=== PATIENT | female | born 2000 | race African-American/Black ===

== ENCOUNTER 2018-11-13 16:44 | Emergency (ER) | payer OTHER ==
[2018-11-13 17:00] VITALS: BP 102/66; PULSE 96; TEMP 99.6; BMI 28.8
[2018-11-13] MEDS ORDERED: ONDANSETRON *ODT* 4 MG TABLET SL ONE (17:04)
--- NOTE | 2018-11-13 17:04 | PDOC ---
Rapid Medical Evaluation Chief Complaint: Vomiting/Diarrhea Time Seen by Provider: 11/13/18 16:57 Medical Evaluation: Allergies Allergy/AdvReac Type Severity Reaction Status Date / Time No Known Allergies Allergy Verified 01/13/18 13:05 Vital Signs Temp Pulse Resp BP Pulse Ox 99.6 F 96 H 18 102/66 100 11/13/18 16:58 11/13/18 16:58 11/13/18 16:58 11/13/18 16:58 11/13/18 16:58 11/13/18 17:02 I have performed a brief in-person evaluation of this patient. The patient presents with a chief complaint of: N/V, diarrhea, body aches, tactile fever and chills since this AM. LMP last week of last month, unsure exact date. Pertinent physical exam findings: A&O x 3 in NAD I have ordered the following: rapid flu. uhcg. zofran The patient will proceed to the ED for further evaluation. Discharge Disposition - Diagnosis Gastroenteritis Nausea & vomiting Qualifiers: Vomiting type: unspecified Vomiting Intractability: non-intractable Qualified Code(s): R11.2 - Nausea with vomiting, unspecified - Discharge Dispostion Condition at time of disposition: Stable - Referrals - Patient Instructions - Post Discharge Activity
[2018-11-13] MEDS ORDERED: ONDANSETRON HCL 4 MG/5 ML UD CUPS ONE (19:26)
[2018-11-13 20:03] LABS: BASO % 0.3 % (0-2.0); EOS % 0.2 % (0-4.5); HEMATOCRIT 40.4 % (32.4-45.2); HEMOGLOBIN 13.1 GM/dL (10.7-15.3); LYMPH % 5.1 % (8-40); MCHC 32.5 g/dl (32.0-36.0); MEAN CELL VOLUME 83.2 fl (80-96); MONO % 4.1 % (3.8-10.2); NEUT % 90.3 % (42.8-82.8); PLATELET COUNT 323 K/MM3 (134-434); RBC 4.86 M/mm3 (3.60-5.2); RDW 15.2 % (11.6-15.6); WHITE BLOOD COUNT 12.5 K/mm3 (4.0-10.0)
[2018-11-13 20:27] LABS: ALBUMIN 4.1 g/dl (3.4-5.0); ALK PHOS 69 U/L (45-117); ANION GAP 9 MMOL/L (8-16); BILIRUBIN,TOTAL 0.9 mg/dL (0.2-1); BLOOD UREA NITROGEN 11 mg/dL (7-18); CALCIUM 8.7 mg/dL (8.5-10.1); CHLORIDE 104 mmol/L (98-107); CO2 24 mmol/L (21-32); CREATININE 0.8 mg/dL (0.55-1.3); GLUCOSE,RANDOM 81 mg/dL (74-106); LIPASE 82 U/L (73-393); POTASSIUM 4.4 mmol/L (3.5-5.1); SGOT/AST 24 U/L (15-37); SGPT/ALT 22 U/L (13-61); SODIUM 137 mmol/L (136-145)
--- NOTE | 2018-11-13 20:36 | PDOC ---
History of Present Illness - General Chief Complaint: Vomiting/Diarrhea Stated Complaint: STOMACH VIRUS Time Seen by Provider: 11/13/18 16:57 History Source: Patient Exam Limitations: No Limitations - History of Present Illness Travel History: No Initial Comments: 11/13/18 20:34 HISTORY OF PRESENT ILLNESS: 18-year-old girl with past medical history of cholecystectomy presents emergency department for evaluation of nausea, nonbilious nonbloody vomiting, greenish nonbloody diarrhea for the past 2 days. Patient reports she was with her friends who was seen and evaluated for gastroenteritis on 11/11. Patient reports her friends expressing solar symptoms when she went to the emergency department. Patient reports she had her normal dinner of rice, beans and steak on 11/12 but woke up in the morning expressing the symptoms. She denies any abdominal pain. No recent travel or sick contacts. PAST MEDICAL HISTORY: Denies past medical history SURGICAL HISTORY: Denies ALLERGIES: No known drug allergies REVIEW OF SYSTEMS General/Constitutional: Denies fever or chills. Denies weakness, weight change. HEENT: Denies change in vision. Denies ear pain or discharge. Denies sore throat. Cardiovascular: Denies chest pain or shortness of breath. Respiratory: Denies cough, wheezing, or hemoptysis. Gastrointestinal: see HPI Genitourinary: Denies dysuria, frequency, or change in urination. Musculoskeletal: Denies joint or muscle swelling or pain. Denies neck or back pain. Skin and breasts: Denies rash or easy bruising. Neurologic: Denies headache, vertigo, loss of consciousness, or loss of sensation. Psychiatric: Denies depression or anxiety. Endocrine: Denies increased thirst. Denies abnormal weight change. Hematologic/Lymphatic: Denies anemia, easy bleeding, or history of blood clots. Allergic/Immunologic: Denies hives or skin allergy. Denies latex allergy. PHYSICAL EXAM General Appearance: Well-appearing, appropriately dressed. No apparent distress , no intoxication. HEENT: EOMI, PERRLA, normal ENT inspection, normal voice, TMs normal, pharynx normal. No conjunctival pallor. No photophobia, scleral icterus. Neck: Supple. Trachea midline. No tenderness, rigidity, carotid bruit, stridor , lymphadenopathy, or thyromegaly. Respiratory/Chest: Lungs CTAB. No shortness of breath, chest tenderness, respiratory distress, accessory muscle use. No crackles, rales, rhonchi, stridor , wheezing, dullness Cardiovascular: RRR. S1, S2. No JVD, murmur, bradycardia, tachycardia. Vascular Pulses: Dorsalis-Pedis (R): 2+, Dorsalis-Pedis (L): 2+ Gastrointestinal/Abdominal: Normal bowel sounds. Abdomen soft, non-distended. No tenderness or rebound tenderness. No organomegaly, pulsatile mass, guarding, hernia, hepatomegaly, splenomegaly. Lymphatic: No adenopathy, tenderness. Musculoskeletal/Extremities: Normal inspection. FROM of all extremities, normal capillary refill. Pelvis Stable. No CVA tenderness. No tenderness to extremities, pedal edema, swelling, erythema or deformity. Integumentary: Appropriate color, dry, warm. No cyanosis, erythema, jaundice or rash Neurologic: pipe straightener II-XII intact. Fully oriented, alert. Appropriate mood/affect. Motor strength 5/5. No appreciable EOM palsy, facial droop or sensory deficit. Past History - Past Medical History Allergies/Adverse Reactions: Allergies Allergy/AdvReac Type Severity Reaction Status Date / Time No Known Allergies Allergy Verified 01/13/18 13:05 Home Medications: Ambulatory Orders Ondansetron [Zofran Odt -] 4 mg SL TID #21 od.tablet 11/13/18 Asthma: Yes COPD: No GI Disorders: No Kidney Stones: No - Surgical History Cholecystectomy: Yes - Immunization History Immunization Up to Date: Yes - Suicide/Smoking/Psychosocial Hx Smoking History: Never smoked Have you smoked in the past 12 months: No Information on smoking cessation initiated: No Hx Alcohol Use: No Drug/Substance Use Hx: No Substance Use Type: None *Physical Exam - Vital Signs Last Vital Signs Temp Pulse Resp BP Pulse Ox 99.6 F 96 H 18 102/66 100 11/13/18 16:58 11/13/18 16:58 11/13/18 16:58 11/13/18 16:58 11/13/18 16:58 ED Treatment Course - LABORATORY CBC & Chemistry Diagram: 11/13/18 19:31 11/13/18 19:31 - ADDITIONAL ORDERS Additional order review: Laboratory Results 11/13/18 19:31 Sodium 137 Potassium 4.4 Chloride 104 Carbon Dioxide 24 Anion Gap 9 BUN 11 Creatinine 0.8 Creat Clearance w eGFR 91.45 Random Glucose 81 Calcium 8.7 Total Bilirubin 0.9 AST 24 ALT 22 Alkaline Phosphatase 69 Total Protein 8.0 Albumin 4.1 Lipase 82 11/13/18 19:31 RBC 4.86 MCV 83.2 MCHC 32.5 RDW 15.2 MPV 8.0 D Neutrophils % 90.3 H Lymphocytes % 5.1 L D Monocytes % 4.1 Eosinophils % 0.2 Basophils % 0.3 - Medications Given in the ED: ED Medications Discontinued Medications Generic Name Dose Route Start Last Admin Trade Name Osei PRN Reason Stop Dose Admin Ondansetron HCl 4 mg 11/13/18 17:04 11/13/18 19:26 Zofran Odt - SL 11/13/18 17:05 4 mg ONCE ONE Administration Medical Decision Making - Medical Decision Making 11/13/18 20:35 A/P: 18-year-old woman with nausea and vomiting with green diarrhea times today Benign abdominal exam Labs Zofran Reassess 11/13/18 20:38 Influenza testing is negative. Laboratory testing is remarkable for WBC of 12.5 with 90% neutrophils. Trial of oral fluids 11/13/18 21:08 Patient tolerated by mouth's without difficulty. Repeat abdominal examination remains benign. I will defer imaging at this time to provide strict return precautions for the patient. Patient has verbalized understanding strict return precautions is in agreement with the current plan. *DC/Admit/Observation/Transfer Diagnosis at time of Disposition: Gastroenteritis Nausea & vomiting Qualifiers: Vomiting type: unspecified Vomiting Intractability: non-intractable Qualified Code(s): R11.2 - Nausea with vomiting, unspecified - Discharge Dispostion Disposition: HOME Condition at time of disposition: Stable - Prescriptions Prescriptions: Ondansetron [Zofran Odt -] 4 mg SL TID #21 od.tablet - Referrals Referrals: Artur Frank MD, MD [Primary Care Provider] - - Patient Instructions Additional Instructions: Rest, drink lots of fluids: Teas, water, soups Maribell adelita, carbonated beverages for the bubbles May try peppermint teas Avoid heavy , spicy or fatty foods until symptoms have resolved Avoid contact with others until fevers and symptoms resolved Lots of handwashing and good hygiene Continue soiq-jma-jzeiuuf medications for symptomatic relief Tylenol or Motrin for fever and pain May use Zofran-one tablet dissolved on tongue as needed for nauseousness. May repeat times one every 8 hours Followup with private physician in one to 2 days as needed Return to emergency department for worsened symptoms, fevers, dehydration - Post Discharge Activity
== END 2018-11-13 21:11 | disposition home or self-care (01) ==
LOC: JERFT 16:44 → JER 16:44 → JERFT 21:11
DX: K52.9 Noninfective gastroenteritis and colitis, unspecified (principal)
CPT/HCPCS: 36415; 80053; 83690; 85025; 87804; 99281-25; Q0162

== ENCOUNTER 2020-04-18 11:17 | Emergency (ER) | payer OTHER ==
[2020-04-18 11:28] VITALS: BP 120/73; PULSE 81; TEMP 97.9; BMI 31.4
[2020-04-18] MEDS ORDERED: SODIUM CHLORIDE 1,000 ML IV STA (11:51)
--- NOTE | 2020-04-18 11:51 | PDOC ---
History of Present Illness - General Chief Complaint: Lightheaded Stated Complaint: Lightheaded Time Seen by Provider: 04/18/20 11:43 History Source: Patient Exam Limitations: No Limitations Past History - Medical History Allergies/Adverse Reactions: Allergies Allergy/AdvReac Type Severity Reaction Status Date / Time No Known Allergies Allergy Verified 04/18/20 11:28 Home Medications: Ambulatory Orders Cephalexin Monohydrate [Keflex -] 500 mg PO BID #14 capsule 04/18/20 Metformin HCl [Glucophage] 500 mg PO 04/18/20 Asthma: Yes COPD: No GI Disorders: No Kidney Stones: No - Surgical History Cholecystectomy: Yes - Reproductive History Is Patient Now?: No - Immunization History Immunization Up to Date: Yes - Psycho-Social/Smoking History Smoking History: Never smoked Have you smoked in the past 12 months: No - Substance Abuse Hx (Audit-C & DAST Scrn) How often the patient has a drink containing alcohol: Never Score: In Men: 4 or > Positive; In Women: 3 or > Positive: 0 Screen Result (Pos requires Nsg. Audit-10AR): Negative In the last yr the pt used illegal drug/Rx for NonMed reason: No Score: Yes response is considered Positive: 0 Screen Result (Positive result requires Nsg. DAST-10): Negative Review of Systems - Review of Systems Able to Perform ROS?: Yes Comments:: 04/18/20 15:57 CONSTITUTIONAL: Present: lightheaded Absent: fever, chills, diaphoresis, generalized weakness, malaise, loss of appetite HEENT: Absent: rhinorrhea, nasal congestion, throat pain, throat swelling, difficulty swallowing, mouth swelling, ear pain, eye pain, visual Changes CARDIOVASCULAR: Absent: chest pain, loss of consciousness, palpitations, irregular heart rate, peripheral edema RESPIRATORY: Absent: cough, shortness of breath, dyspnea with exertion, orthopnea, wheezing, stridor, hemoptysis GASTROINTESTINAL: Present: lower abdominal discomfort Absent: abdominal pain, abdominal distension, nausea, vomiting, diarrhea, constipation, melena, hematochezia GENITOURINARY: Present: frequency Absent: dysuria, urgency, hesitancy, hematuria, flank pain, genital pain MUSCULOSKELETAL: Absent: myalgia, arthralgia, joint swelling SKIN: Absent: rash, itching, pallor HEMATOLOGIC/IMMUNOLOGIC: Absent: easy bleeding, easy bruising, lymphadenopathy, frequent infections ENDOCRINE: Absent: unexplained weight gain, unexplained weight loss, heat intolerance, cold intolerance NEUROLOGIC: Absent: headache, focal weakness or paresthesias, dizziness, unsteady gait, seizure, mental status changes, bladder or bowel incontinence PSYCHIATRIC: Absent: anxiety, depression, suicidal or homicidal ideation, hallucinations. Is the patient limited [place] proficient: No *Physical Exam - Vital Signs Last Vital Signs Temp Pulse Resp BP Pulse Ox 97.9 F 81 16 120/73 100 04/18/20 11:20 04/18/20 11:20 04/18/20 11:20 04/18/20 11:20 04/18/20 11:20 - Physical Exam 04/18/20 15:58 GENERAL: Well developed, well nourished. Awake and alert. No acute distress. HEENT: Normocephalic, atraumatic. PERRLA, EOMI. No conjunctival pallor. Sclera are non- icteric. Moist mucous membranes. Oropharynx is clear. NECK: Supple. Full ROM. No lymphadenopathy. CARDIOVASCULAR: Regular rate and rhythm. No murmurs, rubs, or gallops. Distal pulses are 2+ and symmetric. PULMONARY: No evidence of respiratory distress. Lungs clear to auscultation bilaterally. No wheezing, rales or rhonchi. ABDOMINAL: Discomfort to the suprapubic region. Soft. Non-distended. No rebound or guarding. Normoactive bowel sounds. MUSCULOSKELETAL Normal range of motion at all joints. No bony deformities or tenderness. No CVA tenderness. EXTREMITIES: No cyanosis. No clubbing. No edema. No calf tenderness. SKIN: Warm and dry. Normal capillary refill. No rashes. No jaundice. NEUROLOGICAL: Alert, awake, appropriate. Cranial nerves 2-12 intact. No deficits to light touch and temperature in face, upper extremities and lower extremities. No motor deficits in the in face, upper extremities and lower extremities. Normoreflexic in the upper and lower extremities. Normal speech. Toes are down-going bilaterally. Gait is normal without ataxia. PSYCHIATRIC: Cooperative. Good eye contact. Appropriate mood and affect. ED Treatment Course - LABORATORY CBC & Chemistry Diagram: 04/18/20 12:35 04/18/20 12:35 Medical Decision Making - Medical Decision Making 04/18/20 13:43 The patient is a 20 y/o F with no PMH who presents to the ER today for lightheadedness starting at work today. She states that she had been feeling "off" the past three days and had some lower abdominal discomfort. She also states she has been using the bathroom more frequently. She states that when she sits up she feels woozy. Denies vertiginous symptoms. States that she has been eating and drinking as normal. Denies fevers, chills, n/v/d, vaginal discharge, chest pain and shortness of breath. A/P: Lightheaded On exam, pt is neurologically intact with no focal deficits. Abdomen is with discomfort over the suprapubic region. DDINLT: dehydration, orthostatic hypotension, UTI, vertigo, anemia Labs, urine, fluids, EKG ordered VSS, afebrile Urine with (+) UTI, labs otherwise unremarkable EK bpm, NSR. Normal intervals and axis. No acute ST-T wave changes. Normal ECG 1g of ceftriaxone given in the ED for UTI Pt reports lightheadedness has resolved after abx Will treat with keflex for UTI, rx sent to patient's pharmacy. DC home I discussed the physical exam findings, ancillary test results and final diagnoses with the patient. I answered all of the patient's questions. The patient was satisfied with the care received and felt comfortable with the discharge plan and treatment plan. The Patient agrees to follow up with the primary care physician/specialist within 24-72 hours. Return precautions were given. Discharge - Discharge Information Problems reviewed: Yes Clinical Impression/Diagnosis: Lightheaded UTI (urinary tract infection) Qualifiers: Urinary tract infection type: acute cystitis Hematuria presence: without hematuria Qualified Code(s): N30.00 - Acute cystitis without hematuria Condition: Stable Disposition: HOME - Admission No - Additional Discharge Information Prescriptions: Cephalexin Monohydrate [Keflex -] 500 mg PO BID #14 capsule - Follow up/Referral Referrals: Sahtya Edwards MD [Primary Care Provider] - - Patient Discharge Instructions Patient Printed Discharge Instructions: DI for Urinary Tract Infection (UTI) Additional Instructions: You have a urinary tract infection. This caused by bacteria and most likely caus ing your weakness. Please drink plenty of fluids. Take your antibiotics as prescribed. Finish the entire dose even if you feel better. You may take Tylenol or Motrin as needed for pain Please follow up with your primary care doctor this week. Return to the emergency department if you have fevers, chills, nausea, vomiting, back pain, or have any changes in your symptoms. - Post Discharge Activity Work/Back to School Note: Back to Work
[2020-04-18 12:54] LABS: BASO % 0.8 % (0-2.0); EOS % 0.9 % (0-4.5); HEMATOCRIT 40.9 % (32.4-45.2); HEMOGLOBIN 13.7 GM/dL (10.7-15.3); LYMPH % 22.4 % (8-40); MCHC 33.4 g/dl (32.0-36.0); MEAN CELL VOLUME 83.8 fl (80-96); MONO % 7.6 % (3.8-10.2); NEUT % 68.3 % (42.8-82.8); PLATELET COUNT 372 K/MM3 (134-434); RBC 4.89 M/mm3 (3.60-5.2); RDW 14.4 % (11.6-15.6); WHITE BLOOD COUNT 9.1 K/mm3 (4.0-10.0)
[2020-04-18 13:01] LABS: HCG,QUALITATIVE URINE Negative
[2020-04-18 13:04] LABS: EPI CELLS >36 /uL (0-25.1); HYALINE CASTS 7 /uL (0-3.1); PH,URINE 5.5 (5.0-8.0); URINE APPEARANCE CLOUDY; URINE BACTERIA 8820 /uL (0-1359); URINE BILIRUBIN NEGATIVE (NEGATIVE); URINE COLOR YELLOW; URINE GLUCOSE (UA) NEGATIVE (NEGATIVE); URINE KETONE NEGATIVE (NEGATIVE); URINE LEUK ESTERASE 1+ (NEGATIVE); URINE NITRITE NEGATIVE (NEGATIVE); URINE PROTEIN NEGATIVE (NEGATIVE); URINE RBC 8 /uL (0-23.9); URINE UROBILINOGEN 0.2 mg/dL (0.2-1.0); URINE WBC 242 /uL (0-25.8)
[2020-04-18] MEDS ORDERED: ACETAMINOPHEN 1000 MG/100 ML VIAL (NON FORMULARY) IVPB ONE (13:11)
[2020-04-18] MEDS ORDERED: ONDANSETRON 4 MG/2 ML VIAL IVPUSH ONE (13:11)
[2020-04-18 13:34] LABS: ALBUMIN 4.1 g/dl (3.4-5.0); BLOOD UREA NITROGEN 5.4 mg/dL (7-18); CALCIUM 9.5 mg/dL (8.5-10.1); CREATININE 0.8 mg/dL (0.55-1.3); TOT PROT 9.8 g/dl (6.4-8.2)
[2020-04-18] MEDS ORDERED: CEFTRIAXONE 1,000 MG in DEXTROSE 5%-WATER - 50 ML IVPB ONE (13:53)
[2020-04-18] MEDS ORDERED: ACETAMINOPHEN INJECTION 100 ML IVPB ONE (14:45)
[2020-04-18] MEDS ORDERED: CEFTRIAXONE 1 GM/50 ML BAG ONE (14:45)
--- NOTE | 2020-04-18 15:55 | EKG ---
Test Reason : Blood Pressure : / mmHG Vent. Rate : 075 BPM Atrial Rate : 075 BPM P-R Int : 142 ms QRS Dur : 074 ms QT Int : 358 ms P-R-T Axes : 033 039 012 degrees QTc Int : 399 ms NORMAL SINUS RHYTHM NORMAL ECG NO PREVIOUS ECGS AVAILABLE Confirmed by ALAN MOSQUEDA MD ([id number]) on 04/18/2020 3:55:05 PM Referred By: Confirmed By:ALAN MOSQUEDA MD
== END 2020-04-18 15:46 | disposition home or self-care (01) ==
LOC: JER 11:17
PROC: 3E03329 Introduction of Other Anti-infective into Peripheral Vein, Percutaneous Approach (ICD-10-PCS; principal; 2020-04-18)
PROC: 3E033GC Introduction of Other Therapeutic Substance into Peripheral Vein, Percutaneous Approach (ICD-10-PCS; 2020-04-18)
PROC: 3E0337Z Introduction of Electrolytic and Water Balance Substance into Peripheral Vein, Percutaneous Approach (ICD-10-PCS; 2020-04-18)
DX: N30.00 Acute cystitis without hematuria (principal)
CPT/HCPCS: 36415; 80053; 81003; 84703; 85025; 87086; 93005; 93010; 99284-25; J0131

== ENCOUNTER 2021-04-22 10:59 | Emergency (ER) | payer OTHER ==
[2021-04-22 11:14] VITALS: BP 106/65; PULSE 85; BMI 29.0
[2021-04-22 11:48] VITALS: TEMP 99
== END 2021-04-22 15:10 | disposition home or self-care (01) ==
LOC: SUPCPDRO 10:59 → FER 10:59
DX: L08.82 Omphalitis not of newborn (principal)
CPT/HCPCS: 74177-TC; 81025; 87070; 87076; 87186; 87205; 99284-25; Q9967

== ENCOUNTER → 2021-04-24 | Day surgery (SDC) | payer OTHER | END | disposition home or self-care (01) | LOC: JRADIR 13:26 | PROVIDERS: ATTEND Radiology Diagnostic Radiology | PROC: 3E0 Administration, Physiological Systems and Anatomical Regions, Introduction (ICD-10-PCS; principal; 2021-04-24) | PROC: BW11YZZ Fluoroscopy of Abdomen and Pelvis using Other Contrast (ICD-10-PCS; 2021-04-24) | DX: L02.91 Cutaneous abscess, unspecified (principal) | CPT/HCPCS: 20501 ==

== ENCOUNTER 2021-06-09 09:18 | Emergency (ER) | payer OTHER ==
[2021-06-09 09:30] VITALS: BP 120/77; PULSE 85; TEMP 100; BMI 30.5
== END 2021-06-09 10:28 | disposition home or self-care (01) ==
LOC: FER 09:18
DX: T81.31XA Disruption of external operation (surgical) wound, not elsewhere classified, initial encounter (principal)
CPT/HCPCS: 99281-25

== ENCOUNTER 2021-10-24 00:04 | Emergency (ER) | payer OTHER ==
[2021-10-24 00:16] VITALS: BP 126/79; PULSE 78; TEMP 99; BMI 27.3
[2021-10-24 02:24] LABS: PH,URINE 5.5 (5.0-8.0); URINE APPEARANCE TURBID; URINE BILIRUBIN NEGATIVE (NEGATIVE); URINE COLOR DK YELLOW; URINE GLUCOSE (UA) NEGATIVE (NEGATIVE); URINE KETONE TRACE (NEGATIVE); URINE LEUK ESTERASE NEGATIVE (NEGATIVE); URINE NITRITE NEGATIVE (NEGATIVE); URINE PROTEIN TRACE (NEGATIVE)
[2021-10-24 07:16] LABS: HCG,QUALITATIVE URINE Negative
== END 2021-10-24 01:30 | disposition left against medical advice (07) ==
LOC: FER 00:04
DX: N39.0 Urinary tract infection, site not specified (principal); R10.30 Lower abdominal pain, unspecified
CPT/HCPCS: 81003; 81025; 84703; 87086; 99283-25

== ENCOUNTER 2022-01-28 02:21 | Emergency (ER) | payer OTHER ==
[2022-01-28 02:45] VITALS: BP 116/80; PULSE 64; TEMP 99.1; BMI 28.1
[2022-01-28] MEDS ORDERED: ACETAMINOPHEN 500 MG TABLET (FP) PO ONE (03:15)
[2022-01-28] MEDS ORDERED: IBUPROFEN 400 MG TABLET (FP) PO ONE (03:15)
== END 2022-01-28 03:55 | disposition left against medical advice (07) ==
LOC: JER 02:21
DX: R07.9 Chest pain, unspecified (principal)
CPT/HCPCS: 99281-25

== ENCOUNTER 2022-05-09 21:45 | Emergency (ER) | payer OTHER ==
[2022-05-09 22:05] VITALS: BP 136/84; PULSE 81; RESP 20; TEMP 98.3; BMI 28.1
[2022-05-10] MEDS ORDERED: ACETAMINOPHEN 325 MG TABLET (FP) PO ONE (01:47)
[2022-05-10] MEDS ORDERED: ACETAMINOPHEN 325 MG TABLET (FP) ONE (01:50)
== END 2022-05-10 02:48 | disposition home or self-care (01) ==
LOC: JERFT 21:45 → JER 21:45
DX: M54.50 Low back pain, unspecified (principal); M25.562 Pain in left knee; V89.2XXA Person injured in unspecified motor-vehicle accident, traffic, initial encounter
CPT/HCPCS: 72100-TC-FY; 73560-TC-LT-FY; 84703; 99285-25

== ENCOUNTER 2022-08-14 14:04 | Emergency (ER) | payer OTHER ==
[2022-08-14 14:35] VITALS: BP 101/64; PULSE 92; RESP 18; TEMP 98.1; BMI 28.1
[2022-08-14] MEDS ORDERED: ACETAMINOPHEN 500 MG TABLET (FP) PO ONE (15:08)
[2022-08-14] MEDS ORDERED: IBUPROFEN 400 MG TABLET (FP) PO ONE (15:08)
== END 2022-08-14 19:32 | disposition home or self-care (01) ==
LOC: JER 14:04 → JERFT 14:04
DX: M25.571 Pain in right ankle and joints of right foot (principal)
CPT/HCPCS: 73610-TC-RT-FY; 73630-TC-RT-FY; 99283-25

== ENCOUNTER 2022-11-07 16:31 | Emergency (ER) | payer OTHER ==
[2022-11-07 16:51] VITALS: TEMP 98.2; BMI 27.3
[2022-11-07 20:52] VITALS: BP 124/82; PULSE 80; RESP 18
== END 2022-11-07 20:52 | disposition home or self-care (01) ==
LOC: FER 16:31
DX: O99.511 Diseases of the respiratory system complicating pregnancy, first trimester (principal); R50.9 Fever, unspecified; Z3A.11 11 weeks gestation of pregnancy
CPT/HCPCS: 81003; 82962; 87086; 93005; 99284-25

== ENCOUNTER 2025-04-04 21:31 | Emergency (ER) | payer OTHER ==
[2025-04-04] MEDS ORDERED: AMOX TR/POT CLAV 875MG/125MG TABLETS (FP) PO ONE (21:41)
[2025-04-04] MEDS ORDERED: AMOX TR/POT CLAV 875MG/125MG TABLETS (FP) ONE (21:47)
[2025-04-04] MEDS ORDERED: ACETAMINOPHEN 325 MG TABLET (FP) ONE (21:47)
[2025-04-04] MEDS: ACETAMINOPHEN 325 MG TABLET (FP) PO ONE (21:50)
[2025-04-04] MEDS: AMOX TR/POT CLAV 875MG/125MG TABLETS (FP) PO ONE (21:50)
[2025-04-04 21:56] VITALS: BP 126/71; PULSE 74; RESP 16; TEMP 100; BMI 29.0
== END 2025-04-04 22:08 | disposition home or self-care (01) ==
LOC: FER 21:31
DX: S61.306A Unspecified open wound of right little finger with damage to nail, initial encounter (principal); R50.9 Fever, unspecified; X58.XXXA Exposure to other specified factors, initial encounter
CPT/HCPCS: 73140-TC-RT-FY; 87637-QW; 99284-25